=== PATIENT | male | born 1995 | race Asian ===

== ENCOUNTER 2024-04-01 15:38 | Emergency (ER) | payer MEDICAID ==
[~2024-04-01] VITALS: Ht 172.7 cm; Wt 72.0 kg
[2024-04-01 16:12] VITALS: BP 144/96; PULSE 75; RESP 16; TEMP 98; O2SAT 99
[2024-04-01] MEDS: LIDOcaine 1% W/epiNEPHrine 1:100,000 20ml vial IJ ONE (17:30)
[2024-04-01] MEDS ORDERED: CEPH-585 PO (19:21)
== END 2024-04-01 19:37 | disposition home or self-care (01) ==
LOC: ER 15:39
DX: S00.511A Abrasion of lip, initial encounter (principal); W05.1XXA Fall from non-moving nonmotorized scooter, initial encounter; Y93.89 Activity, other specified; Y92.89 Other specified places as the place of occurrence of the external cause; Y99.8 Other external cause status
CPT/HCPCS: 99283; A6449